=== PATIENT | male | born 1965 | race Caucasian/White ===

== ENCOUNTER 2020-06-06 15:48 | Emergency (ER) | payer BC, OTHER ==
[2020-06-06 15:53] VITALS: BP 117/75; PULSE 110; TEMP 98.7; BMI 27.9
[2020-06-06] MEDS ORDERED: LORazepam 0.5 MG TABLET PO ONE (16:06)
[2020-06-06] MEDS ORDERED: LORazepam 0.5 MG TABLET ONE (16:12)
--- NOTE | 2020-06-06 16:27 | PDOC ---
History of Present Illness - General Chief Complaint: Psychiatric Stated Complaint: ANXIETY Time Seen by Provider: 06/06/20 15:55 History Source: Patient - History of Present Illness Timing/Duration: other Past History - Medical History Allergies/Adverse Reactions: Allergies Allergy/AdvReac Type Severity Reaction Status Date / Time No Known Allergies Allergy Verified 06/06/20 15:55 Home Medications: Ambulatory Orders LORazepam [Ativan] 0.5 mg PO Q6H PRN #12 tablet MDD 4 doses 06/06/20 COPD: No Psychiatric Problems: Yes (PANIC ATTACKS) - Surgical History GI Surgery: Yes (Lap band) - Immunization History Immunization Up to Date: No - Psycho-Social/Smoking History Smoking Status: No Smoking History: Current every day smoker Have you smoked in the past 12 months: Yes Number of Cigarettes Smoked Daily: 10 Information on smoking cessation initiated: No - Substance Abuse Hx (Audit-C & DAST Scrn) How often the patient has a drink containing alcohol: Never Score: In Men: 4 or > Positive; In Women: 3 or > Positive: 0 Screen Result (Pos requires Nsg. Audit-10AR): Negative In the last yr the pt used illegal drug/Rx for NonMed reason: No Score: Yes response is considered Positive: 0 Screen Result (Positive result requires Nsg. DAST-10): Negative Review of Systems - Review of Systems Psychiatric: Yes: Anxiety, Stressors *Physical Exam - Vital Signs Last Vital Signs Temp Pulse Resp BP Pulse Ox 98.7 F 110 H 18 117/75 97 06/06/20 15:48 06/06/20 15:48 06/06/20 15:48 06/06/20 15:48 06/06/20 15:48 - Physical Exam General Appearance: Yes: Appropriately Dressed. No: Apparent Distress HEENT: positive: Normal Voice Neck: positive: Supple Respiratory/Chest: negative: Respiratory Distress Integumentary: positive: Dry, Warm Neurologic: positive: Fully Oriented, Alert, Normal Mood/Affect, Motor Strength 5/5 Medical Decision Making - Medical Decision Making 06/06/20 16:16 54-year-old male, endorses history of anxiety and depression in young adulthood that was treated with medication for approximately 10 years until he took himself off meds. States symptoms had resolved until approximately a month ago when anxiety episodes returned, consistent with palpitations and a feeling of doom that lasts for a couple of seconds and resolve but lately episodes have been lasting longer and appearing more frequently, at times waking him up from sleep. No chest pain or shortness of breath. Denies anhedonia, SI or HI. States he currently has multiple stressors in his personal life and work. Has a strong family history of psych illness per patient see exam Anxiety Was on meds in past but not now Multiple stressors at home No SI/HI Denies illicit drugs Dc w/ small dose of ativan Encourage PMD f/u for further eval Discharge - Discharge Information Problems reviewed: Yes Clinical Impression/Diagnosis: Anxiety Condition: Good Disposition: HOME - Additional Discharge Information Prescriptions: LORazepam [Ativan] 0.5 mg PO Q6H PRN #12 tablet MDD 4 doses PRN Reason: Anxiety - Follow up/Referral - Patient Discharge Instructions Patient Printed Discharge Instructions: DI for Anxiety -- Adult Additional Instructions: Please take medication as needed and follow up with your PMD for further evaluation
== END 2020-06-06 16:32 | disposition home or self-care (01) ==
LOC: JERFT 15:48
DX: F41.9 Anxiety disorder, unspecified (principal)
CPT/HCPCS: 99283-25

== ENCOUNTER 2021-09-21 20:45 | Emergency (ER) | payer BC ==
[2021-09-21 21:03] VITALS: BP 137/77; PULSE 112; TEMP 100.5; BMI 28.8
[2021-09-21] MEDS ORDERED: SULFAMETHOXAZOLE/TRIMETHOPRIM 800MG/160MG D.S. TABLET PO ONE (22:19)
== END 2021-09-21 22:29 | disposition home or self-care (01) ==
LOC: FER 20:45
DX: L02.416 Cutaneous abscess of left lower limb (principal)
CPT/HCPCS: 99283-25